=== PATIENT | male | born 1965 | race Hispanic/Latino ===

== ENCOUNTER 2023-07-02 09:35 | Outpatient (CLI) | payer BC ==
[2023-07-02 11:25] LABS: #Basophils 0.1 10x3/uL (0.0-0.2); #Eosinphils 0.2 10x3/uL (0.0-0.5); #Monocytes 0.8 10x3/uL (0.0-1.1); #Neutrophils 3.6 10x3/uL (1.5-8.4); %Basophils 0.9 % (0.0-2.0); %Eosinophils 2.6 % (0.0-6.0); %Lymphocytes 31.3 % (18.0-47.0); %Monocytes 12.2 % (0.0-10.0); %Neutrophils 52.9 % (40.0-75.0); Hematocrit 45.6 % (38.8-50.0); Hemoglobin 15.5 g/dL (13.5-17.5); Mean Corpuscular Hemoglobin 30.9 pg (27.0-33.0); Mean Platelet Volume 10.6 fl (7.4-10.4); Platelet Count 221 10x3/uL (150-450); Red Blood Cell (RBC) Count 5.01 10x6/uL (4.32-5.72); White Blood Cell (WBC) Count 6.9 10x3/uL (3.5-10.5)
[2023-07-02 11:52] LABS: INR-International Normal Ratio 1.1; Prothrombin Time 11.6 sec (9.5-12.1)
[2023-07-02 12:10] LABS: Anion Gap 14 mmol/L (10-20); BUN (Urea Nitrogen) 13 mg/dL (8.4-25.7); Calc. Creatinine Clearance 0 mL/min (70-130); Calcium 9.6 mg/dL (7.8-10.44); Carbon Dioxide 29 mmol/L (22-29); Chloride 98 mmol/L (98-107); Estimated GFR 105; Glucose 87 mg/dL (70-105); Potassium 4.1 mmol/L (3.5-5.1); Sodium 137 mmol/L (136-145)
== END 2023-07-02 09:36 | disposition home or self-care (01) ==
LOC: LABBT 09:35
PROVIDERS: ATTEND Orthopaedic Surgery
DX: Z01.818 Encounter for other preprocedural examination (principal); M17.11 Unilateral primary osteoarthritis, right knee
CPT/HCPCS: 80048; 85025; 85610; 87081; 93005; 93010

== ENCOUNTER 2023-08-17 10:54 | Outpatient (CLI) | payer BC ==
[2023-08-17 11:30] LABS: #Eosinphils 0.2 10x3/uL (0.0-0.5); #Monocytes 0.8 10x3/uL (0.0-1.1); #Neutrophils 5.4 10x3/uL (1.5-8.4); %Basophils 0.5 % (0.0-2.0); %Lymphocytes 25.8 % (18.0-47.0); %Monocytes 8.7 % (0.0-10.0); %Neutrophils 62.8 % (40.0-75.0); Hematocrit 44.4 % (38.8-50.0); Hemoglobin 15.6 g/dL (13.5-17.5); Mean Corpuscular HGB CONC 35.1 g/dL (32.0-36.0); Mean Corpuscular Hemoglobin 31.9 pg (27.0-33.0); Mean Corpuscular Volume 90.8 fl (81.2-95.1); Mean Platelet Volume 9.4 fl (7.4-10.4); Platelet Count 224 10x3/uL (150-450); RBC Distribution Width 12.8 % (11.5-14.5); Red Blood Cell (RBC) Count 4.89 10x6/uL (4.32-5.72); White Blood Cell (WBC) Count 8.6 10x3/uL (3.5-10.5)
[2023-08-17 11:43] LABS: ALT (SGPT) 15 U/L (8-55); AST (SGOT) 15 U/L (5-34); Albumin 4.4 g/dL (3.5-5.0); Alkaline Phosphatase 50 U/L (40-110); Anion Gap 13 mmol/L (10-20); BUN (Urea Nitrogen) 21 mg/dL (8.4-25.7); Bilirubin, Total 0.7 mg/dL (0.2-1.2); Calc. Creatinine Clearance 0 mL/min (70-130); Calcium 9.2 mg/dL (7.8-10.44); Carbon Dioxide 30 mmol/L (22-29); Chloride 101 mmol/L (98-107); Estimated GFR 104; Globulin 2.6 g/dL (2.4-3.5); Glucose 98 mg/dL (70-105); Potassium 4.1 mmol/L (3.5-5.1); Sodium 140 mmol/L (136-145)
== END 2023-08-17 10:55 | disposition home or self-care (01) ==
LOC: LABBT 10:54
PROVIDERS: ATTEND Internal Medicine Cardiovascular Disease
DX: Z01.818 Encounter for other preprocedural examination (principal)
CPT/HCPCS: 80053; 85025; 93005; 93010

== ENCOUNTER 2023-08-19 05:54 | Day surgery (SDC) | payer BC ==
[2023-08-17 11:21] VITALS: BMI 34.9
[2023-08-19] MEDS ORDERED: Heparin 10,000 UNITS/ 10 ML VIAL ONE (06:16)
[2023-08-19] MEDS ORDERED: Nitroglycerin 50 MG/250 ML BOT 250 ML ONE (06:16)
[2023-08-19] MEDS ORDERED: Midazolam HCl 2 mg/2 ml Vial ONE (07:02)
[2023-08-19] MEDS ORDERED: fentaNYL 50 mcg/mL 1 mL Vial ONE (07:02)
[2023-08-19 07:07] LABS: Cardiac Risk 3.4 (Less than 4.5)
[2023-08-19] MEDS ORDERED: Protamine Sulfate 50 MG/5 ML VIAL ONE (07:40)
[2023-08-19] MEDS ORDERED: Iopamidol 370 76% 100 ML VIAL ONE (13:35)
== END 2023-08-19 15:44 | disposition home or self-care (01) ==
LOC: SDC 05:54
PROVIDERS: ATTEND Internal Medicine Cardiovascular Disease
PROC: 4A023N7 Measurement of Cardiac Sampling and Pressure, Left Heart, Percutaneous Approach (ICD-10-PCS; principal; 2023-08-19)
DX: I49.8 Other specified cardiac arrhythmias (principal); E78.00 Pure hypercholesterolemia, unspecified; I10 Essential (primary) hypertension; Z79.899 Other long term (current) drug therapy; M19.90 Unspecified osteoarthritis, unspecified site; Z98.890 Other specified postprocedural states
CPT/HCPCS: 36415; 80061; 85347; 93005; 93458; 99152; 99153; C1769; J1644; J2250; J2720; J3010; Q9967

== ENCOUNTER 2023-09-23 15:49 | Outpatient (CLI) | payer BC ==
[2023-09-23 16:36] LABS: #Basophils 0.1 10x3/uL (0.0-0.2); #Eosinphils 0.2 10x3/uL (0.0-0.5); #Monocytes 0.7 10x3/uL (0.0-1.1); #Neutrophils 4.8 10x3/uL (1.5-8.4); %Basophils 0.6 % (0.0-2.0); %Eosinophils 2.3 % (0.0-6.0); %Lymphocytes 26.9 % (18.0-47.0); %Monocytes 9.2 % (0.0-10.0); %Neutrophils 60.9 % (40.0-75.0); Hematocrit 41.3 % (38.8-50.0); Hemoglobin 14.4 g/dL (13.5-17.5); Mean Corpuscular HGB CONC 34.9 g/dL (32.0-36.0); Mean Corpuscular Hemoglobin 31.5 pg (27.0-33.0); Mean Corpuscular Volume 90.4 fl (81.2-95.1); Mean Platelet Volume 9.3 fl (7.4-10.4); Platelet Count 224 10x3/uL (150-450); RBC Distribution Width 12.8 % (11.5-14.5); Red Blood Cell (RBC) Count 4.57 10x6/uL (4.32-5.72); White Blood Cell (WBC) Count 7.9 10x3/uL (3.5-10.5)
[2023-09-23 16:50] LABS: INR-International Normal Ratio 1.1; Prothrombin Time 11.5 sec (9.5-12.1)
[2023-09-23 16:57] LABS: Anion Gap 13 mmol/L (10-20); BUN (Urea Nitrogen) 13 mg/dL (8.4-25.7); Calc. Creatinine Clearance 0 mL/min (70-130); Calcium 9.1 mg/dL (7.8-10.44); Carbon Dioxide 27 mmol/L (22-29); Chloride 105 mmol/L (98-107); Estimated GFR 105; Glucose 84 mg/dL (70-105); Potassium 4.2 mmol/L (3.5-5.1); Sodium 141 mmol/L (136-145)
== END 2023-09-23 15:50 | disposition home or self-care (01) ==
LOC: LABBT 15:49
PROVIDERS: ATTEND Orthopaedic Surgery
DX: Z01.818 Encounter for other preprocedural examination (principal); M17.11 Unilateral primary osteoarthritis, right knee
CPT/HCPCS: 80048; 85025; 85610; 87081

== ENCOUNTER 2023-09-29 05:44 | Observation (INO) | payer BC ==
[2023-09-23 16:17] VITALS: BMI 35.6
[2023-09-29] MEDS ORDERED: Sodium Chloride 0.9% 100 ML ONE ×2 (06:00→06:58)
[2023-09-29] MEDS ORDERED: Vancomycin (BATCH) 2 GM in Premix 1 BAG IVPB SCH (06:00)
[2023-09-29] MEDS ORDERED: Tranexamic Acid 1,000 MG/10 ML VIAL ONE (06:00)
[2023-09-29] MEDS ORDERED: CEFAZOLIN 2 GM in Sodium Chloride 0.9% 100 ML IVPB SCH (06:15)
[2023-09-29] MEDS ORDERED: PROPOFOL 20 ML ONE (06:25)
[2023-09-29] MEDS ORDERED: Lidocaine 1% PF 5 ML VIAL ONE (06:25)
[2023-09-29] MEDS ORDERED: fentaNYL PF 100 MCG/2 ML SYRINGE ONE ×3 (06:25→08:02)
[2023-09-29] MEDS ORDERED: Midazolam HCl 2 mg/2 ml Vial ONE (06:26)
[2023-09-29] MEDS ORDERED: Bupivacaine PF 0.5% 30 ML VIAL ONE (06:40)
[2023-09-29] MEDS ORDERED: Bupivacaine 0.25% HCL 30 ML VIAL ONE (06:57)
[2023-09-29] MEDS ORDERED: EPINEPHrine 1 MG/ML VIAL ONE (06:57)
[2023-09-29] MEDS ORDERED: CEFAZOLIN 2 GM VIAL ONE (06:58)
[2023-09-29] MEDS ORDERED: fentaNYL 50 mcg/mL 1 mL Vial SLOW IVP PRN (07:26)
[2023-09-29] MEDS ORDERED: Ondansetron PF 4 MG/2 ML Vial IVP PRN ×2 (07:30→09:16)
[2023-09-29] MEDS ORDERED: Promethazine HCl 25 MG/ML VIAL IM PRN ×3 (07:30→09:16)
[2023-09-29] MEDS ORDERED: Ropivacaine 0.2% 550 ML 550 ML NERVE BLCK SCH (07:30)
[2023-09-29] MEDS ORDERED: Zolpidem Tartrate 5 MG TAB PO PRN ×2 (07:30→09:16)
[2023-09-29] MEDS ORDERED: HYDROcodone/Acetaminophen 10/325 mg Tablet PO PRN (07:30)
[2023-09-29] MEDS ORDERED: traMADol HCl 50 MG TAB PO PRN ×2 (07:30)
[2023-09-29] MEDS ORDERED: hydrALAZINE 20 MG/ML VIAL ONE (08:10)
[2023-09-29] MEDS ORDERED: Ondansetron PF 4 MG/2 ML Vial ONE (08:10)
[2023-09-29] MEDS ORDERED: Ketorolac Tromethamine 30 MG (1 mL) VIAL ONE (08:10)
[2023-09-29] MEDS ORDERED: Dexamethasone 4 mg/ml Vial ONE (08:10)
[2023-09-29] MEDS ORDERED: Ondansetron HCl/PF 4 MG/2 ML Vial IVP PRN (08:14)
[2023-09-29] MEDS ORDERED: Meperidine HCl/PF 25 MG/ML VIAL SLOW IVP PRN (08:14)
[2023-09-29] MEDS ORDERED: HYDROmorphone 2 MG/ML VIAL SLOW IVP PRN (08:14)
[2023-09-29] MEDS ORDERED: diphenhydrAMINE 25 MG CAP PO PRN (09:16)
[2023-09-29] MEDS ORDERED: Acetaminophen 325 MG TAB PO PRN (09:16)
[2023-09-29] MEDS ORDERED: fentaNYL 50 mcg/mL 1 mL Vial ONE (09:34)
[2023-09-29] MEDS: Aspirin 81 mg Enteric Coated Tablet PO SCH ×2 (10:15→21:50)
[2023-09-29] MEDS: Ketorolac Tromethamine 30 MG (1 mL) VIAL IVP SCH (12:15)
[2023-09-29] MEDS: Sodium Chloride 0.9% 1,000 ML IV SCH (12:34)
[2023-09-29] MEDS: CEFAZOLIN 2 GM in Sodium Chloride 0.9% 100 ML IVPB SCH (17:35)
[2023-09-29] MEDS: HYDROcodone/Acetaminophen 10/325 mg Tablet PO PRN (21:50)
[2023-09-30 04:52] LABS: Hematocrit 31.1 % (42.0-52.0); Hemoglobin 10.3 g/dL (14.0-18.0); Mean Corpuscular HGB CONC 33.1 g/dL (32.0-36.0); Mean Corpuscular Hemoglobin 31.7 pg (27.0-31.0); Mean Corpuscular Volume 95.7 fl (78.0-98.0); Mean Platelet Volume 9.8 fL (7.4-10.4); Platelet Count 173 10x3/uL (130-400); RBC Distribution Width 13.2 % (11.5-14.5); Red Blood Cell (RBC) Count 3.25 mill/uL (4.70-6.10); White Blood Cell (WBC) Count 9.7 10x3/uL (4.8-10.8)
[2023-09-30] MEDS: Multivitamin W/ Minerals 1 TAB PO SCH (09:02)
[2023-09-30] MEDS: Ferrous Gluconate 324 MG TAB PO SCH (09:02)
[2023-09-30 09:03] VITALS: TEMP 99.3
[2023-09-30] MEDS: Senokot S 8.6-50 MG TAB PO SCH (09:04)
[2023-09-30 12:01] VITALS: BP 142/67
== END 2023-09-30 12:45 | disposition home or self-care (01) ==
LOC: SDC 05:44 → SURG B 12:33
PROVIDERS: ADMIT Orthopaedic Surgery; ATTEND Orthopaedic Surgery
PROC: 0SRC0JZ Replacement of Right Knee Joint with Synthetic Substitute, Open Approach (ICD-10-PCS; principal; 2023-09-29)
DX: M17.11 Unilateral primary osteoarthritis, right knee (principal); I10 Essential (primary) hypertension; Z79.82 Long term (current) use of aspirin; Z79.899 Other long term (current) drug therapy
CPT/HCPCS: 36415; 85027; A4306; C1713; C1776; J0171; J0360; J0665; J1100; J1885; J2250; J2405; J2704; J2795; J3010; J3370; J3490; J7050